=== PATIENT | male | born 1955 | race African-American/Black ===

== ENCOUNTER 2019-05-30 04:43 | Emergency (ER) | payer OTHER ==
[~2019-05-30] VITALS: Ht 180.3 cm; Wt 118.0 kg
[2019-05-30] MEDS ORDERED: KETOROLAC 60MG/2ML VIAL IM ONE (06:30)
[2019-05-30 07:20] LABS: CLARITY URINE CLEAR (CLEAR); COLOR URINE YELLOW (YELLOW); SPECIFIC GRAVITY URINE 1.017 (1.005-1.030)
[2019-05-30 07:21] LABS: KETONES URINE NEGATIVE (NEGATIVE); LEUKOCYTE ESTERASE URINE NEGATIVE (NEGATIVE); NITRITE URINE NEGATIVE (NEGATIVE); OCCULT BLOOD URINE TRACE (NEGATIVE); PROTEIN URINE 1+ (NEGATIVE); UROBILINOGEN URINE 0.2 E.U./dL (0.2-1.0)
[2019-05-30 07:49] LABS: BASOPHILS % 1.2 % (0.0-2.0); EOSINOPHILS % 2.7 % (0.0-5.0); HEMATOCRIT. 44.2 % (42.0-52.0); HEMOGLOBIN. 15.2 g/dL (14.0-18.0); LYMPHOCYTES % 27.1 % (20.0-50.0); MEAN CORPUSCULAR HEMOGLOBIN 29.7 pg (28.0-32.0); MEAN CORPUSCULAR VOLUME 86.5 fL (80.0-94.0); MEAN PLATELET VOLUME 9.3 fl (7.4-10.4); MONOCYTES % 7.8 % (2.0-8.0); NEUTROPHILS % 61.2 % (40.0-76.0); PLATELET 153 x1000/uL (130-400); RED BLOOD CELL COUNT 5.11 mill/uL (4.7-6.1); RED CELL DISTRIBUTION WIDTH 13.5 % (11.6-14.6)
[2019-05-30 07:55] LABS: CHLORIDE 111 mEq/L (98-107)
[2019-05-30 09:16] VITALS: BP 156/78
== END 2019-05-30 09:30 | disposition home or self-care (01) ==
LOC: ER 04:43
DX: N12 Tubulo-interstitial nephritis, not specified as acute or chronic (principal)
CPT/HCPCS: 36415; 74176; 80053; 81003; 85025; 87086; 96372; 99284; J1885

== ENCOUNTER 2022-03-22 07:33 | Inpatient (IN) | payer MEDICARE, OTHER ==
[~2022-03-22] VITALS: Ht 177.8 cm; Wt 117.5 kg
[2022-03-22] MEDS ORDERED: NITROGLYCERIN 0.4MG TABLET SL SL PRN ×2 (08:45→11:30)
[2022-03-22] MEDS ORDERED: ASPIRIN 81MG TABLET PO ONE (08:45)
[2022-03-22 09:32] LABS: BASOPHILS % 0.8 % (0.0-2.0); EOSINOPHILS % 2.5 % (0.0-5.0); HEMATOCRIT. 45.4 % (42.0-52.0); HEMOGLOBIN. 15.4 g/dL (14.0-18.0); MEAN CORPUSCULAR VOLUME 85.4 fL (80.0-94.0); MEAN PLATELET VOLUME 8.8 fl (7.4-10.4); MONOCYTES % 8.1 % (2.0-8.0); NEUTROPHILS % 62.6 % (40.0-76.0); PLATELET 188 x1000/uL (130-400); RED BLOOD CELL COUNT 5.32 mill/uL (4.7-6.1); RED CELL DISTRIBUTION WIDTH 13.9 % (11.6-14.6)
[2022-03-22 09:39] LABS: CHLORIDE 108 mEq/L (98-107)
[2022-03-22] MEDS ORDERED: DOCUSATE SODIUM 100MG CAPSULE PO PRN (11:30)
[2022-03-22] MEDS ORDERED: IPRATROPIUM/ALBUTEROL 0.5-3(2.5)MG/3ML NEB HHN PRN (11:30)
[2022-03-22] MEDS ORDERED: ONDANSETRON HCL 4MG/2ML INJ IV PRN (11:30)
[2022-03-22] MEDS ORDERED: HYDROCODONE/ACETAMINOPHEN 5/325MG TABLET PO PRN (11:30)
[2022-03-22] MEDS ORDERED: LORAZEPAM 0.5MG TABLET PO PRN (11:30)
[2022-03-22] MEDS ORDERED: CLONIDINE 0.1MG TABLET PO PRN (11:30)
[2022-03-22] MEDS ORDERED: ACETAMINOPHEN 325MG TABLET PO PRN ×2 (11:30)
[2022-03-22] MEDS ORDERED: MORPHINE SULFATE 2 MG/ML CPJ (NOT FOR IM USE) IV PRN (11:30)
[2022-03-22] MEDS ORDERED: NALOXONE HCL 0.4MG/ML VIAL IV PRN (11:45)
[2022-03-22 12:00] VITALS: BP 131/65
[2022-03-22 12:58] VITALS: BP 131/74
[2022-03-22 15:57] LABS: *AMPHETAMINES SCREEN URINE NEGATIVE (NEGATIVE); *BARBITURATES SCREEN URINE NEGATIVE (NEGATIVE); *BENZODIAZEPINES SCREEN URINE NEGATIVE (NEGATIVE); *COCAINE SCREEN URINE NEGATIVE (NEGATIVE); CANNABINOID URINE SCREEN NEGATIVE (NEGATIVE); METHADONE URINE SCREEN NEGATIVE (NEGATIVE); OPIATES URINE SCREEN NEGATIVE (NEGATIVE); PHENCYCLIDINE URINE SCREEN NEGATIVE (NEGATIVE)
[2022-03-22 16:02] VITALS: BP 113/55
[2022-03-22 17:04] LABS: HDL CHOLESTEROL 38 mg/dL (40-59); LDL CHOLESTEROL 143 mg/dL (5-100)
[2022-03-22 20:00] VITALS: BP 118/65
[2022-03-23] VITALS: BP 108/54
[2022-03-23 04:00] VITALS: BP 134/76
[2022-03-23 06:31] LABS: BASOPHILS % 0.5 % (0.0-2.0); HEMATOCRIT. 45.9 % (42.0-52.0); HEMOGLOBIN. 15.6 g/dL (14.0-18.0); LYMPHOCYTES % 18.5 % (20.0-50.0); MEAN CORPUSCULAR HEMOGLOBIN 28.9 pg (28.0-32.0); MEAN CORPUSCULAR VOLUME 85.1 fL (80.0-94.0); MEAN PLATELET VOLUME 9.2 fl (7.4-10.4); MONOCYTES % 6.6 % (2.0-8.0); NEUTROPHILS % 72.4 % (40.0-76.0); PLATELET 211 x1000/uL (130-400); RED CELL DISTRIBUTION WIDTH 13.6 % (11.6-14.6)
[2022-03-23 07:18] LABS: CHLORIDE 107 mEq/L (98-107)
[2022-03-23 08:00] VITALS: BP 126/76
[2022-03-23] MEDS ORDERED: REGADENOSON 0.4 MG/5 ML IV ONE (11:00)
[2022-03-23 12:00] VITALS: BP 121/65
[2022-03-23 16:00] VITALS: BP 120/55
[2022-03-23 20:00] VITALS: BP 116/70
[2022-03-23] MEDS ORDERED: ATORVASTATIN CALCIUM 10MG TABLET PO SCH (21:00)
[2022-03-24] VITALS: BP 127/73
[2022-03-24 04:00] VITALS: BP 114/60
[2022-03-24 08:00] VITALS: BP 111/68
[2022-03-24] MEDS ORDERED: REGADENOSON 0.4 MG/5 ML IV ONE (11:47)
[2022-03-24 12:00] VITALS: BP 107/74
[2022-03-24] MEDS ORDERED: ATOR10TA PO (14:29)
[2022-03-24 16:00] VITALS: BP 113/70
[2022-03-24 16:05] VITALS: BP 113/75
== END 2022-03-24 18:05 | disposition home health service (06) | DRG 311 ==
LOC: ER 08:26 → EDBEDREQ 11:14 → EDBEDREQTM 11:14 → ENRESERV 11:20 → CANRESERV 11:20 → ENRESERV 11:27 → 8WST 12:46
PROVIDERS: ADMIT Internal Medicine; ATTEND Internal Medicine
DX: I24.9 Acute ischemic heart disease, unspecified (principal); Z20.822 Contact with and (suspected) exposure to COVID-19; E78.5 Hyperlipidemia, unspecified; Z87.891 Personal history of nicotine dependence; Z83.3 Family history of diabetes mellitus; Z85.810 Personal history of malignant neoplasm of tongue; R94.31 Abnormal electrocardiogram [ECG] [EKG]
CPT/HCPCS: 36415; 71045; 78452; 80048; 80053; 80061; 80305; 83036; 83880; 84443; 84484; 85025; 85379; 87426; 93005; 93017; 93306; 99285; A9500; J2785